=== PATIENT | female | born 1935 | race Caucasian/White ===

== ENCOUNTER 2021-06-24 20:36 | Inpatient (IN) | payer MEDICARE, OTHER ==
[~2021-06-24] VITALS: Ht 162.6 cm; Wt 64.0 kg
[2021-06-25 00:12] LABS: CHLORIDE 106 mmol/L (98-107)
[2021-06-25 00:14] LABS: CALCIUM, TOTAL 8.9 mg/dL (8.8-10.5)
[2021-06-25] MEDS ORDERED: DOCU-270 PO (00:17)
[2021-06-25] MEDS ORDERED: PHEN-846 PO (00:17)
[2021-06-25] MEDS ORDERED: INSLAN SQ (00:17)
[2021-06-25] MEDS ORDERED: PANT-31 PO (00:17)
[2021-06-25] MEDS ORDERED: LEVO150 PO (00:17)
[2021-06-25] MEDS ORDERED: CARV12.530 PO (00:17)
[2021-06-25] MEDS ORDERED: DIVA-112 PO (00:17)
[2021-06-25] MEDS ORDERED: BISA10SU11 PR (00:17)
[2021-06-25] MEDS ORDERED: OLAN5TAB52 PO (00:17)
[2021-06-25 00:26] LABS: ANION GAP 14 mmol/L (8-16); CARBON DIOXIDE 24 mmol/L (22-29); CREATININE 1.28 mg/dL (0.60-1.30); GLOMERULAR FILTR. RATE CALC 40 mL/min (>60); GLUCOSE,RANDOM 181 mg/dL (70-110); SODIUM SERUM 144 mmol/L (136-145); UREA NITROGEN, BLOOD 46 mg/dL (7-18)
[2021-06-25 00:37] LABS: ALBUMIN 2.6 g/dL (3.4-5.0); ALKALINE PHOSPHATASE 54 U/L (46-116); BILIRUBIN,TOTAL 0.2 mg/dL (0.1-1.0); TOTAL PROTEIN, SERUM 8.2 g/dL (6.4-8.2)
[2021-06-25 00:42] LABS: ALANINE AMINOTRANSFERASE 12 U/L (12-78); ASPARTATE AMINOTRANSFERASE < 5 U/L (15-37); FREE T4 (FREE THYROXINE) 0.73 ng/dL (0.76-1.46); THYROID STIMULATING HORMONE 11.12 uIU/mL (0.36-3.74); VALPROIC ACID 14 mcg/mL (50-100)
[2021-06-25 01:00] LABS: COVID AG,FIA SOURCE NASOPHARYNGEAL
[2021-06-25] MEDS ORDERED: DiphenhydrAMINE HCL 50 MG/ML VIAL IVP ONE (01:00)
[2021-06-25] MEDS ORDERED: LORazepam 2 MG/ML VIAL IVP ONE (01:00)
[2021-06-25 01:06] LABS: BASOPHILS % (AUTO) 0.4 % (0.0-2.0); EOSINOPHILS % (AUTO) 0.2 % (1.0-6.0); HEMATOCRIT 22.3 % (36-46); HEMOGLOBIN 7.3 g/dL (12.0-16.0); LYMPHOCYTES # (AUTO) 1.2 K/uL (1.0-4.8); LYMPHOCYTES % (AUTO) 20.3 % (22.0-44.0); MEAN CORPUSCULAR HEMOGLOBIN 28.2 pg (26.0-34.0); MEAN CORPUSCULAR HGB CONC 32.9 G/dL (31.0-37.0); MEAN CORPUSCULAR VOLUME 86 fL (80-100); MONOCYTES # (AUTO) 0.6 K/uL (0.1-1.0); MONOCYTES % (AUTO) 10.7 % (2.0-9.0); NEUTROPHILS % (AUTO) 68.4 % (40.0-70.0); PLATELET COUNT (AUTO) 144 K/uL (150-450); RED BLOOD CELL COUNT(AUTO) 2.59 MIL/uL (4.00-5.20); RED CELL DISTRIBUTION WIDTH 16.9 % (11.5-14.5)
[2021-06-25 01:15] LABS: APPEARANCE,URINE TURBID (CLEAR); GLUCOSE, URINE (UA) NEGATIVE (NEGATIVE); KETONES,URINE 40 mg/dL (NEGATIVE); LEUKOCYTE ESTERASE ,URINE LARGE (NEGATIVE); NITRATE,URINE POSITIVE (NEGATIVE); OCCULT BLOOD,URINE LARGE (NEGATIVE); PH,URINE 6.5 (5.0-8.0); PROTEIN,URINE SEE CONFIRM (NEGATIVE)
[2021-06-25 01:24] LABS: BILIRUBIN,URINE PRELIM. POSITIVE (NEGATIVE)
[2021-06-25 01:36] LABS: SULFOSALICYLIC ACID,URINE 4+ (Negative)
[2021-06-25 01:37] LABS: BACTERIA,URINE Many /HPF (None Seen); RBC,URINE Full Field /HPF (0-2); WBC,URINE Full Field /HPF (0-5)
[2021-06-25 01:49] LABS: AMPHET/METH SCREEN,URINE NEGATIVE (NEGATIVE); BARBITURATE SCREEN, URINE NEGATIVE (NEGATIVE); BENZODIAZEPINES SCREEN,URINE NEGATIVE (NEGATIVE); CANNABINOID SCREEN,URINE NEGATIVE (NEGATIVE); COCAINE SCREEN,URINE NEGATIVE (NEGATIVE); METHADONE SCREEN, URINE NEGATIVE (NEGATIVE); OPIATE SCREEN,URINE POSITIVE (NEGATIVE)
[2021-06-25 01:51] LABS: PHENCYCLIDINE SCREEN,URINE NEGATIVE (NEGATIVE)
[2021-06-25] MEDS ORDERED: CefTRIAXone 1 GM/DEXTROSE 50 ML IV ONE (02:00)
[2021-06-25] MEDS ORDERED: MORPHINE SULFATE 4 MG/ML SYRINGE IVP ONE (02:30)
[2021-06-25] MEDS ORDERED: ONDANSETRON HCL 4 MG/2 ML VIAL IVP ONE (02:30)
[2021-06-25] MEDS ORDERED: 0.9% SODIUM CHLORIDE 10 ML SYRINGE IVP PRN (02:45)
[2021-06-25] MEDS ORDERED: SODIUM CHLORIDE 0.9% 1,000 ML IV ONE (02:45)
[2021-06-25] MEDS ORDERED: DEXTROSE 50%-WATER 25 GM/50 ML SYRINGE IVP PRN (08:15)
[2021-06-25] MEDS: LEVOTHYROXINE SODIUM 150 MCG TABLET PO SCH (08:15)
[2021-06-25] MEDS ORDERED: ACETAMINOPHEN 325 MG TABLET PO PRN (08:15)
[2021-06-25] MEDS ORDERED: ONDANSETRON HCL 4 MG/2 ML VIAL IVP PRN (08:15)
[2021-06-25] MEDS: OxyCODONE HCL/ACETAMINOPHEN 5-325 MG TABLET PO PRN ×2 (08:37→08:44)
[2021-06-25] MEDS: DOCUSATE SODIUM 100 MG CAPSULE PO SCH ×2 (08:37→08:45)
[2021-06-25] MEDS: ASPIRIN 81 MG CHEWABLE TABLET PO SCH ×3 (08:37→09:00)
[2021-06-25] MEDS: FAMOTIDINE 20 MG TABLET PO SCH ×2 (08:38→08:44)
[2021-06-25] MEDS: HEPARIN SODIUM,PORCINE 5,000 UNITS/ML VIAL SQ SCH (16:27)
[2021-06-25] MEDS: MORPHINE SULFATE 2 MG/ML SYRINGE IVP PRN (17:46)
[2021-06-25 20:34] VITALS: BP 102/56
[2021-06-25] MEDS: INSULIN LISPRO 100 UNITS/ML SQ PRN (20:55)
[2021-06-26] MEDS ORDERED: SODIUM CHLORIDE 0.9% 500 ML IV ONE (01:48)
[2021-06-26] MEDS: INSULIN LISPRO 100 UNITS/ML SQ PRN ×2 (02:03→11:57)
[2021-06-26] MEDS: CefTRIAXone 1 GM/DEXTROSE 50 ML IV SCH (02:04)
[2021-06-26 03:38] VITALS: BP 123/65
[2021-06-26] MEDS: LEVOTHYROXINE SODIUM 150 MCG TABLET PO SCH ×2 (05:52→06:49)
[2021-06-26 08:26] LABS: GLUCOMETER DEV NAME(LOC) 6N.1; GLUCOSE,POINT OF CARE 179 MG/DL (70-110)
[2021-06-26 08:26] LABS: GLUCOMETER DEV NAME(LOC) 6N.2; GLUCOSE,POINT OF CARE 97 MG/DL (70-110)
[2021-06-26 08:31] VITALS: BP 114/72
[2021-06-26] MEDS: DOCUSATE SODIUM 100 MG CAPSULE PO SCH ×2 (08:34→20:27)
[2021-06-26] MEDS: ASPIRIN 81 MG CHEWABLE TABLET PO SCH (08:58)
[2021-06-26] MEDS: FAMOTIDINE 20 MG TABLET PO SCH ×2 (08:58→20:27)
[2021-06-26] MEDS: HEPARIN SODIUM,PORCINE 5,000 UNITS/ML VIAL SQ SCH ×4 (08:59→23:19)
[2021-06-26] MEDS: OxyCODONE HCL/ACETAMINOPHEN 5-325 MG TABLET PO PRN ×2 (09:31→16:23)
[2021-06-26 13:41] LABS: GLUCOMETER DEV NAME(LOC) 6N.2; GLUCOSE,POINT OF CARE 199 MG/DL (70-110)
[2021-06-26 16:42] VITALS: BP 116/58
[2021-06-26] MEDS: MORPHINE SULFATE 2 MG/ML SYRINGE IVP PRN (16:59)
[2021-06-26 18:37] LABS: GLUCOMETER DEV NAME(LOC) 6N.2; GLUCOSE,POINT OF CARE 102 MG/DL (70-110)
[2021-06-26 20:53] VITALS: BP 101/56
[2021-06-27 00:06] LABS: GLUCOMETER DEV NAME(LOC) 6N.2; GLUCOSE,POINT OF CARE 142 MG/DL (70-110)
[2021-06-27] MEDS: CefTRIAXone 1 GM/DEXTROSE 50 ML IV SCH (00:12)
[2021-06-27] MEDS: HEPARIN SODIUM,PORCINE 5,000 UNITS/ML VIAL SQ SCH ×3 (08:00→23:02)
[2021-06-27] MEDS: ASPIRIN 81 MG CHEWABLE TABLET PO SCH (08:13)
[2021-06-27] MEDS: FAMOTIDINE 20 MG TABLET PO SCH ×2 (08:14→20:24)
[2021-06-27] MEDS: DOCUSATE SODIUM 100 MG CAPSULE PO SCH ×2 (08:14→20:24)
[2021-06-27 08:15] VITALS: BP 145/67
[2021-06-27] MEDS: MORPHINE SULFATE 2 MG/ML SYRINGE IVP PRN (08:35)
[2021-06-27 15:28] VITALS: BP 133/63
[2021-06-27 20:10] VITALS: BP 121/50
[2021-06-27] MEDS: OLANZapine 5 MG TABLET PO SCH (20:24)
[2021-06-28] MEDS: CefTRIAXone 1 GM/DEXTROSE 50 ML IV SCH (00:15)
[2021-06-28] MEDS: LEVOTHYROXINE SODIUM 150 MCG TABLET PO SCH (06:16)
[2021-06-28] MEDS: HEPARIN SODIUM,PORCINE 5,000 UNITS/ML VIAL SQ SCH ×2 (08:00→16:00)
[2021-06-28] MEDS: FAMOTIDINE 20 MG TABLET PO SCH ×3 (09:00→21:18)
[2021-06-28] MEDS: DOCUSATE SODIUM 100 MG CAPSULE PO SCH ×3 (09:00→21:19)
[2021-06-28] MEDS: ASPIRIN 81 MG CHEWABLE TABLET PO SCH (09:00)
[2021-06-28 09:04] VITALS: BP 121/61
[2021-06-28] MEDS ORDERED: *CLINICAL-MEROPENEM DOSING CLINICAL ONE (09:30)
[2021-06-28] MEDS ORDERED: MEROPENEM 1 GM in SODIUM CHLORIDE 0.9% 100 ML IV ONE (10:15)
[2021-06-28] MEDS: NITROFURANTOIN MACROCRYSTAL 50 MG CAPSULE PO SCH ×2 (11:38→18:26)
[2021-06-28] MEDS: INSULIN LISPRO 100 UNITS/ML SQ PRN ×2 (11:45→17:38)
[2021-06-28 12:37] LABS: GLUCOMETER DEV NAME(LOC) 6N.1; GLUCOSE,POINT OF CARE 156 MG/DL (70-110)
[2021-06-28] MEDS: OxyCODONE HCL/ACETAMINOPHEN 5-325 MG TABLET PO PRN (13:13)
[2021-06-28 16:21] VITALS: BP 120/66
[2021-06-28 19:55] VITALS: BP 115/63
[2021-06-28] MEDS: OLANZapine 5 MG TABLET PO SCH ×2 (21:00→21:18)
[2021-06-28] MEDS: MEROPENEM 1 GM in SODIUM CHLORIDE 0.9% 100 ML IV SCH (21:19)
[2021-06-29 03:46] LABS: GLUCOMETER DEV NAME(LOC) 6N.1; GLUCOSE,POINT OF CARE 148 MG/DL (70-110)
[2021-06-29 04:10] VITALS: BP 139/60
[2021-06-29] MEDS: NITROFURANTOIN MACROCRYSTAL 50 MG CAPSULE PO SCH ×4 (05:33→18:00)
[2021-06-29] MEDS: LEVOTHYROXINE SODIUM 150 MCG TABLET PO SCH (05:33)
[2021-06-29 07:39] VITALS: BP 125/55
[2021-06-29] MEDS: ASPIRIN 81 MG CHEWABLE TABLET PO SCH (09:00)
[2021-06-29] MEDS: DOCUSATE SODIUM 100 MG CAPSULE PO SCH (09:00)
[2021-06-29] MEDS: FAMOTIDINE 20 MG TABLET PO SCH (09:00)
[2021-06-29] MEDS: MEROPENEM 1 GM in SODIUM CHLORIDE 0.9% 100 ML IV SCH (10:00)
[2021-06-29] MEDS: HEPARIN SODIUM,PORCINE 5,000 UNITS/ML VIAL SQ SCH ×3 (10:39→15:34)
[2021-06-29] MEDS: OxyCODONE HCL/ACETAMINOPHEN 5-325 MG TABLET PO PRN (13:32)
[2021-06-29 15:26] VITALS: BP 129/59
== END 2021-06-29 18:57 | DRG 690 ==
LOC: EMS 20:38 → 6N 06-25 19:31 → 6S 06-25 19:32 → 6N 06-25 20:37
PROVIDERS: ADMIT Internal Medicine; ATTEND Internal Medicine
DX: N12 Tubulo-interstitial nephritis, not specified as acute or chronic (principal); F03.91 Unspecified dementia, unspecified severity, with behavioral disturbance; Z16.24 Resistance to multiple antibiotics; E44.0 Moderate protein-calorie malnutrition; Z20.822 Contact with and (suspected) exposure to COVID-19; F20.9 Schizophrenia, unspecified; E11.9 Type 2 diabetes mellitus without complications; E03.9 Hypothyroidism, unspecified; F31.9 Bipolar disorder, unspecified; I50.9 Heart failure, unspecified; Z66 Do not resuscitate; B96.20 Unspecified Escherichia coli [E. coli] as the cause of diseases classified elsewhere; K21.9 Gastro-esophageal reflux disease without esophagitis; M19.90 Unspecified osteoarthritis, unspecified site; D63.8 Anemia in other chronic diseases classified elsewhere; I25.10 Atherosclerotic heart disease of native coronary artery without angina pectoris; R62.7 Adult failure to thrive; Z93.3 Colostomy status; Z68.24 Body mass index [BMI] 24.0-24.9, adult; Z78.1 Physical restraint status; Z91.14 Patient's other noncompliance with medication regimen; Z91.19 Patient's noncompliance with other medical treatment and regimen; Z79.899 Other long term (current) drug therapy; Z79.4 Long term (current) use of insulin
CPT/HCPCS: 74176; 80053; 80164; 81001; 81002; 82962; 83605; 83880; 84145; 84439; 84443; 85025; 87040; 87081; 87086; 99291; G0480; J0696; J1200; J1644; J2060; J2185; J2270; J2405; J7030; J7040; J7050